=== PATIENT | female | born 1945 | race African-American/Black ===

== ENCOUNTER 2016-12-11 08:42 | Day surgery (SDC) | payer MEDICARE ==
[~2016-12-11] VITALS: Ht 160 cm; Wt 77.3 kg
--- NOTE | ~2016-12-11 | OP ---
PATIENT NAME: SAMI MURO MEDICAL RECORD: [id number] :43 LOCATION:[facility] ADMISSION DATE: SURGEON: DENNIS READ DO DATE OF OPERATION: 12/11/2016 PROCEDURE: Colonoscopy with polypectomy. INDICATIONS FOR PROCEDURE: Positive Cologuard test/fecal immunochemical testing. SCOPE: Olympus video pediatric colonoscope. MEDICATIONS: Propofol 250 mg IV per anesthesia. WITHDRAWAL TIME: 12 minutes. ESTIMATED BLOOD LOSS: Minimal. COMPLICATIONS: None. FINDINGS: Informed consent was given. The patient was made comfortable with the above medication. After reaching an adequate level of sedation by slow IV push, the patient was placed on her left side. A digital rectal examination was performed and was normal. The endoscope was then advanced under direct visualization through the rectum to the cecum with visualization of the appendiceal orifice and ileocecal valve. The scope was slowly withdrawn and t mucosa was carefully examined. The prep quality was good. There was a single polyp visualized on today's examination. It was benign appearing and sessile. It was located in the ascending colon and measured approximately 7-8 mm in diameter. It was removed using a hot snare in 1 piece and completely retrieved. There was evidence of moderate diverticulosis of the entire colon with the most severe diverticula located in the sigmoid and descending colon. Retroflexion was performed in the rectum with visualization of small nonbleeding internal hemorrhoids. The endoscope was withdrawn from the patient. The patient tolerated the procedure well and there were no complications. IMPRESSION: 1. A single polyp located in the ascending colon, removed using a hot snare. 2. Moderate diverticulosis of the entire colon. 3. Small nonbleeding internal hemorrhoids. PLAN AND RECOMMENDATIONS: 1. Discharge home when recovery parameters are met. 2. Follow up biopsy specimen results. 3. High fiber diet. 4. Continue current medications. 5. Recall colonoscopy in 5 years based on a likely tubular adenomatous polyp removed on today's examination. TRANSINT:[id number] Voice Confirmation ID: [id number] DOCUMENT ID: [id number] OPERATIVE REPORT [id number] SAMI MURO DENNIS READ DO CC: [id number] DICTATION DATE: 12/11/16 1158 INFORMATION SYSTEMS AUDITOR: 12/11/16 [id number] [place] [address]
[2016-12-11] MEDS ORDERED: NORVASC5 MG PO (09:52)
[2016-12-11] MEDS ORDERED: ELIQUIS5 MG PO (09:53)
[2016-12-11] MEDS ORDERED: FERROUS SULFAT325 MG PO (09:53)
[2016-12-11] MEDS ORDERED: METOPROLOL TART50 MG PO (09:54)
[2016-12-11] MEDS ORDERED: K-DUR20 MEQ (09:55)
[2016-12-11] MEDS ORDERED: TIZANIDINE 2 MG (09:55)
[2016-12-11] MEDS ORDERED: NEURONTIN600 MG PO (09:56)
[2016-12-11] MEDS ORDERED: ANORO ELLIPTA1 EACH INH (09:57)
[2016-12-11] MEDS ORDERED: ZESTRIL40 MG PO (09:58)
[2016-12-11] MEDS ORDERED: GLUCOPHAGE500 MG PO (09:59)
[2016-12-11] MEDS ORDERED: ZESTRIL20 MG PO (09:59)
[2016-12-11] MEDS ORDERED: ULTRAM50 MG (10:00)
[2016-12-11] MEDS ORDERED: FUROSEMIDE40 MG PO (10:00)
[2016-12-11] MEDS ORDERED: LOPRESSOR25 MG PO (10:01)
[2016-12-11 10:12] VITALS: BP 152/72; Ht 160 cm; Wt 77.3 kg
[2016-12-11 10:34] LABS: BASOPHILS 0.5 % (0-2); EOSINOPHILS 2.3 % (0-7); HEMOGLOBIN 14.1 g/dL (12-16); IMMATURE GRANULOCYTES 0.3 % (0-5); MCH 21.9 pg (26.0-34.0); MCHC 33.6 g/dL (31.0-37.0); MCV 65.3 fL (80.0-100.0); NEUTROPHILS 55.9 % (40-80); PLATELET COUNT 207 10x3/uL (130-400); RBC 6.43 10x6/uL (4.00-5.40); RDW 15.7 % (11.5-14.5); WBC 3.9 10x3/uL (4.8-10.8)
[2016-12-11 10:36] LABS: CALCIUM 9.5 mg/dL (8.5-10.1); CARBON DIOXIDE 32.1 mmol/L (21.0-32.0); POTASSIUM - SERUM 3.1 mmol/L (3.5-5.1)
--- NOTE | 2016-12-11 13:15 | NUR ---
1200-RECD TO ROOM FROM GI LAB-DR READ HERE TO REPORT 1230-NO NAUSEA AFTER FULL LIQUIDS 1240-IV D.C, 1245-DISCHARGE INSTRUCTIONS REVIEWED. 1300-D/C HOME VIA WHEELCHAIR
== END 2016-12-11 13:00 | disposition home or self-care (01) ==
LOC: D.OPS 08:42
PROVIDERS: Anesthesiology
DX: K63.5 Polyp of colon (principal); K64.8 Other hemorrhoids; K57.30 Diverticulosis of large intestine without perforation or abscess without bleeding; J45.909 Unspecified asthma, uncomplicated; I10 Essential (primary) hypertension; E11.9 Type 2 diabetes mellitus without complications; Z01.812 Encounter for preprocedural laboratory examination